=== PATIENT | female | born 1945 | race African-American/Black ===

== ENCOUNTER 2017-01-21 20:00 | Outpatient (CLI) | payer MEDICARE, OTHER | END 2017-01-21 20:01 | disposition home or self-care (01) | LOC: SLEEPLAB 20:00 | PROVIDERS: ATTEND Nurse Practitioner Family | DX: G47.33 Obstructive sleep apnea (adult) (pediatric) (principal); E11.9 Type 2 diabetes mellitus without complications; I10 Essential (primary) hypertension; J44.9 Chronic obstructive pulmonary disease, unspecified | CPT/HCPCS: 95806 ==

== ENCOUNTER 2017-02-14 10:16 | Outpatient (CLI) | payer MEDICARE, OTHER ==
--- NOTE | 2017-02-14 10:59 | BD ---
DEXA BONE DENSITY STUDY: Date: 02/14/17 COMPARISON: None. HISTORY: 71-year-old postmenopausal female for screening for osteoporosis. FINDINGS: Lumbar Spine: BMD (g/cm2) L1 1.115 T-Score: 1.1 L2 1.151 T-Score: 1.1 L3 1.095 T-Score: 0.1 L4 1.074 T-Score: 0.1 L1-L4 1.105 T-Score: 0.5 Femoral Neck: 0.722 T-Score: -1.1 Total Femur: 0.959 T-Score: 0.1 IMPRESSION: Osteopenia. This patient has a 10 year WHO fracture risk for major osteoporotic fracture of 4.4% and a hip fracture of 1.0%. POS: DOUGIE
== END 2017-02-14 10:17 | disposition home or self-care (01) ==
LOC: MAMMO 10:16
PROVIDERS: ATTEND Nurse Practitioner Family
DX: Z78.0 Asymptomatic menopausal state (principal); E28.39 Other primary ovarian failure; M85.88 Other specified disorders of bone density and structure, other site
CPT/HCPCS: 77080

== ENCOUNTER 2017-05-06 11:42 | Outpatient (CLI) | payer MEDICARE, OTHER ==
--- NOTE | 2017-05-06 13:49 | ULT ---
BILATERAL LOWER EXTREMITY DOPPLER VENOUS ULTRASOUND: HISTORY: Bilateral lower extremity edema. TECHNIQUE: Oakes scale, color Doppler, and vascular duplex with spectral analysis was performed of the deep venou s structures of both lower extremities. The common femoral vein, superficial femoral vein, popliteal vein, posterior tibial vein, proximal greater saphenous, and proximal profunda veins were assessed bi laterally. FINDINGS: Normal compression, flow, and augmentation noted in the deep venous structures of both lower extremit ies. IMPRESSION: No evidence of deep vein thrombosis in both lower extremities. POS: DOUGIE
--- NOTE | 2017-05-06 15:04 | ULT ---
BILATERAL LOWER EXTREMITY ARTERIAL DOPPLER ULTRASOUND: Date: 05-06-17 Comparison: None. History: Right knee pain, assess for peripheral arterial disease. Technique: Multiplanar grayscale sonographic imaging of the arterial structures of the bilateral lowe r extremities obtained with color flow and spectral analysis. FINDINGS: Vessel Peak Systolic velocity (cm/sec) Waveform RIGHT LOWER EXTREMITY BATCH UNIT TREATER 161 Triphasic Profunda femoral artery 60 Biphasic SFA proximal 129 Biphasic SFA mid 96 Biphasic SFA distal 89 Biphasic Popliteal artery 62 Biphasic APA 46 Biphasic PIPE STEM SAWYER 51 Biphasic DPA 20 Biphasic LEFT LOWER EXTREMITY BATCH UNIT TREATER 111 Triphasic Profunda femoral artery 99 Biphasic SFA proximal 113 Biphasic SFA mid 76 Biphasic SFA distal 74 Biphasic Popliteal artery 76 Biphasic APA 62 Biphasic PIPE STEM SAWYER 50 Biphasic DPA 26 Biphasic IMPRESSION: Bilateral arterial structures are patent. No discrete hemodynamically significant stenosis is seen on the basis of velocity criteria. POS: DOUGIE
== END 2017-05-06 11:43 | disposition home or self-care (01) ==
LOC: ULT 11:42
PROVIDERS: ATTEND Nurse Practitioner Family
DX: M79.605 Pain in left leg (principal); M79.604 Pain in right leg; I25.10 Atherosclerotic heart disease of native coronary artery without angina pectoris; I12.9 Hypertensive chronic kidney disease with stage 1 through stage 4 chronic kidney disease, or unspecified chronic kidney disease; N18.9 Chronic kidney disease, unspecified
CPT/HCPCS: 93923; 93970

== ENCOUNTER 2017-05-16 20:30 | Outpatient (CLI) | payer MEDICARE, OTHER | END 2017-05-16 20:31 | disposition home or self-care (01) | LOC: SLEEPLAB 20:30 | PROVIDERS: ATTEND Internal Medicine Critical Care Medicine | DX: G47.33 Obstructive sleep apnea (adult) (pediatric) (principal); F41.9 Anxiety disorder, unspecified; J44.9 Chronic obstructive pulmonary disease, unspecified; I25.2 Old myocardial infarction; E11.9 Type 2 diabetes mellitus without complications; R06.3 Periodic breathing | CPT/HCPCS: 95810 ==

== ENCOUNTER 2017-07-09 08:18 | Outpatient (CLI) | payer MEDICARE, OTHER ==
--- NOTE | 2017-07-09 11:49 | ULT ---
ULTRASOUND ABDOMEN: HISTORY: Abdominal pain. COMPARISON: None. FINDINGS: Visualized portion of the aorta has moderate atherosclerotic plaque. The pancreas is unremarkable. IVC is unremarkable. Hepatic echotexture is normal. The liver measures 16.5 cm in length. No intrahepatic or extrahepati c biliary dilatation. The portal vein is patent with antegrade flow. Common bile duct measures 4 mm . No cholelithiasis. Gallbladder wall thickness is normal. The right kidney measures 10 x 4.6 x 4.7 cm without mass, hydronephrosis, or abnormal calcifications. The left kidney measures 10.2 x 5.2 x 5 cm without mass, hydronephrosis, or abnormal calcifications . The spleen measures 8.5 cm in length. Prevoid urinary balder volume is 46 mL and the postvoid is 6.6 mL. IMPRESSION: No acute findings. POS: [facility]
== END 2017-07-09 08:19 | disposition home or self-care (01) ==
LOC: ULT 08:18
PROVIDERS: ATTEND Nurse Practitioner Family
DX: R10.9 Unspecified abdominal pain (principal); I12.9 Hypertensive chronic kidney disease with stage 1 through stage 4 chronic kidney disease, or unspecified chronic kidney disease; N18.9 Chronic kidney disease, unspecified; I25.10 Atherosclerotic heart disease of native coronary artery without angina pectoris; I67.1 Cerebral aneurysm, nonruptured; Z72.0 Tobacco use
CPT/HCPCS: 76700; 76856

== ENCOUNTER 2017-09-06 13:26 | Outpatient (CLI) | payer MEDICARE, OTHER | END 2017-09-06 13:27 | disposition home or self-care (01) | LOC: RAD 13:26 | PROVIDERS: ATTEND Internal Medicine Rheumatology | DX: M54.5 Low back pain (principal); G89.29 Other chronic pain | CPT/HCPCS: 72100 ==

== ENCOUNTER 2018-02-13 12:33 | Outpatient (CLI) | payer MEDICARE, OTHER ==
--- NOTE | 2018-02-13 14:01 | CT ---
LOW DOSE LUNG CANCER CT EVALUATION WITHOUT CONTRAST: Date: 02/13/18 INDICATION: 72-year-old female with history of 60+ years of smoking; quit 10 months ago. COMPARISON: None. FINDINGS: There are areas of tree-in-bud nodularity and ground-glass nodules within the right upper lobe with i nterstitial and ground-glass prominence. This is seen best on image 17 of the axial series. No additi onal suspicious pulmonary nodules are evident. There is scattered emphysema. There are coronary arter y and thoracic aortic calcifications. There are calcified lymph nodes within the mediastinum and righ t hilar region. No pleural effusion is noted. Visualized upper abdomen is unremarkable. There is a ch ronic appearing superior end plate compression deformity of T12. There is scattered degenerative rivera ge. IMPRESSION: 1. Lung-RADS Category 3: Positive: Indeterminate finding requiring low dose CT follow-up imaging. Recommend follow-up low dose CT evaluation in 1-2 months to document resolution of the areas of inte rstitial and ground-glass prominence and scattered tree-in-bud nodularity of the right upper lobe. Th is is suspicious for an infectious or inflammatory bronchiolitis. 2. Category S: Findings of prior granulomatous disease. Coronary artery and thoracic aortic calcifi cations. Emphysema. Superior end plate compression deformity of T12 appears chronic. POS: [facility]
== END 2018-02-13 12:34 | disposition home or self-care (01) ==
LOC: CT 12:33
PROVIDERS: ATTEND Nurse Practitioner Family
DX: Z87.891 Personal history of nicotine dependence (principal)
CPT/HCPCS: G0297

== ENCOUNTER 2018-05-01 12:07 | Outpatient (CLI) | payer MEDICARE, OTHER ==
--- NOTE | 2018-05-01 15:13 | CT ---
LOW DOSE SCREENING CT OF THE CHEST: Date: 05-01-18 Comparison: 02-13-18 History: 58-year-old history of smoking, abnormal chest CT 02-13-18. Technique: Axial CT imaging at 1.25 mm intervals through the chest using low dose screening CT protoc ol without contrast. Coronal reported imaging obtained. FINDINGS: The lack of contrast media limits assessment of the imaged viscera, valve, vascular structures, and f or lymphadenopathy. Limited assessment of the upper abdomen demonstrates atherosclerotic calcification of the imaged abdo km aorta and its branches. No acute upper abdominal findings. No pleural, paracardial, or mediastinal fluid is seen. Limited assessment for adenopathy in the chest demonstrates stable calcified lymph nodes in the right hilum and lateral to the ascending aorta to the right of midline, consistent with granulomatous dise ase, stable. No pneumothorax is evident. Stable fat containing mass is seen along the posterior aspect of the shou lder musculature on the left on image 4. This contains an internal curvilinear septation, as before, and is stable in size when compared to the prior examination measuring up to approximately 6.5 x 2.5 cm. No dominant pulmonary parenchymal mass lesion or nodule is noted within the left upper lobe. Mild inc reased linear density in the inferior lateral lingula noted, likely on the basis of scar and/or volum e loss. A tiny stable 3 mm nodule is noted within the anterior aspect of the left lower lobe on image 33. Mil d increased linear density is again noted within the inferior medial aspect of the left lower lobe, s table as well. Increased linear interstitial density on the basis of scar or volume loss noted within medial right l ower lobe, stable. Right middle lobe appears grossly unremarkable. Scattered nonspecific articular nodular density is seen involving the right upper lobe, most conspicu ous along the inferior aspect of the right upper lobe both anteriorly and posterolaterally. There is a focal area of pleural based density in the right lung apex likely on the basis of scar, best seen o n coronal image 76, stable, measuring 8-9 mm in craniocaudal dimension. Incidental note is made of a small pulmonary arterial venous malformation along the inferior aspect o f the right middle lobe stable as well. There is mild parabronchial cuffing and bronchial wall thicke adry involving the right upper lobe, also unchanged. No acute osseous abnormality identified. IMPRESSION: 1. Lung RADS category 2 - benign appearance or behavior. Persistent reticular nodular opacity with vo lume loss the peribronchial cuffing/bronchial wall thickening and right upper lobe. Given stability o mike time and the calcified nodes in this region, this likely represent the sequellae of a remote/stone planer michael inflammatory or infectious process. 2. Recommend follow up low dose screening chest CT is 12 months. POS: [facility]
== END 2018-05-01 12:08 | disposition home or self-care (01) ==
LOC: CT 12:07
PROVIDERS: ATTEND Nurse Practitioner Family
DX: Z87.891 Personal history of nicotine dependence (principal); J43.0 Unilateral pulmonary emphysema [MacLeod's syndrome]; R91.8 Other nonspecific abnormal finding of lung field; J98.09 Other diseases of bronchus, not elsewhere classified
CPT/HCPCS: G0297

== ENCOUNTER 2018-07-14 08:38 | Outpatient (CLI) | payer MEDICARE, OTHER ==
[~2018-07-14 08:38] MED LIST: Iopamidol 370 76% 100 ML VIAL ONE
--- NOTE | 2018-07-14 11:57 | CT ---
CTA HEAD WITH AND WITHOUT CONTRAST: INDICATIONS: Follow-up aneurysm. COMPARISON: CTA study from 01/03/2017. TECHNIQUE: Multiple axial tomograms obtained through the head without IV enhancement. This was followed by post contrast images performed in the angio phase with multiplanar reconstruction and 3D post processing. FINDINGS: On CT head without contrast, the ventricles have normal size and position. There is no evidence of i ntracranial mass, hemorrhage, or infarct. No acute finding. On CTA head, the intracranial internal carotid arteries are patent. Mild atherosclerotic change is s een in the cavernous portions of both ICAs without stenosis. Aneurysm involving the proximal A2 segment on the left is again noted. This aneurysm measures 5 to 6 mm in all planes and appears unchanged from the prior study. Middle cerebral arteries are patent and symmetric. Basilar artery is patent. Posterior cerebral art eries appear patent and symmetric. 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 POS: DOUGIE
== END 2018-07-14 08:39 | disposition home or self-care (01) ==
LOC: CT 08:38
PROVIDERS: ATTEND Neurological Surgery
DX: I67.1 Cerebral aneurysm, nonruptured (principal)
CPT/HCPCS: 70496; 82565; Q9967

== ENCOUNTER 2018-07-25 13:08 | Outpatient (CLI) | payer MEDICARE, OTHER ==
--- NOTE | 2018-07-25 14:48 | MRI ---
FCervical spine MRI without contrast: 07/25/2018 COMPARISON: None HISTORY: Left-sided shoulder pain and left-sided neck pain TECHNIQUE: Multiplanar multisequence MR imaging of the cervical spine is obtained without contrast. FINDINGS: Sagittal STIR imaging demonstrates no focal area of osseous marrow edema. No anterolisthesis or retrolisthesis noted within the cervical spine. Moderate degenerative change at the atlantoaxial interspace noted. C2-3: Mild facet hypertrophy on the left with no significant central canal or neural foraminal stenos is. C3-4: Intervertebral disc height and signal intensity grossly unremarkable. Mild bilateral facet hype rtrophy noted with no significant central canal or neural foraminal stenosis. C4-5: Disc space narrowing, disc desiccation, and mild disc bulge present with mild effacement of the ventral thecal sac and minimal central canal stenosis. Mild bilateral facet hypertrophy. Right uncov ertebral osteophyte formation present. Moderate right and mild left neural foraminal stenosis. C5-6: Disc desiccation, disc space narrowing, and mild disc bulge with no associated central canal st enosis. Facet and uncovertebral osteophyte formation noted bilaterally, right greater than left. Mode rate right neural foraminal stenosis. No significant left neural foraminal stenosis. C6-7: Intervertebral disc height and signal intensity appears grossly unremarkable. Probable small un covertebral osteophyte formation on the left with mild left neural foraminal stenosis. No significant central canal or right neural foraminal stenosis. C7-T1: No central canal or neural foraminal stenosis. Mild bilateral facet hypertrophy. IMPRESSION: Degenerative change of the cervical spine as detailed above.
== END 2018-07-25 13:09 | disposition home or self-care (01) ==
LOC: TBSIIMAG 13:08
PROVIDERS: ATTEND Family Medicine
DX: M50.11 Cervical disc disorder with radiculopathy, high cervical region (principal); M47.22 Other spondylosis with radiculopathy, cervical region
CPT/HCPCS: 72141

== ENCOUNTER 2018-12-28 13:13 | Observation (INO) | payer MEDICARE, OTHER, MEDICAID ==
--- NOTE | 2018-12-28 14:03 | RAD ---
FRONTAL RADIOGRAPH CHEST: Date: 12/28/18 COMPARISON: None. HISTORY: Weakness, high blood pressure. FINDINGS: There is no pneumothorax or pleural fluid, and no focal consolidation or alveolar edema. Heart and me diastinal contours unremarkable. There is atherosclerotic calcification of the aortic arch. IMPRESSION: No focal consolidation or alveolar edema. No acute findings. POS: [facility]
[2018-12-28 14:11] LABS: #Eosinphils 0.3 thou/uL (0.0-0.7); #Lymphocytes 1.2 thou/uL (1.20-3.40); #Monocytes 0.5 thou/uL (0.11-0.59); %Basophils 0.2 % (0.0-1.0); %Eosinophils 2.3 % (0.0-10.0); %Lymphocytes 10.6 % (21.0-51.0); %Monocytes 4.6 % (0.0-10.0); %Neutrophils 82.2 % (42.0-75.0); Hemoglobin 12.3 g/dL (12.0-16.0); Mean Corpuscular HGB CONC 35.5 g/dL (32.0-36.0); Mean Corpuscular Hemoglobin 36.1 pg (27.0-31.0); RBC Distribution Width 12.1 % (11.5-14.5); White Blood Cell (WBC) Count 10.9 thou/uL (4.8-10.8)
[2018-12-28 14:23] LABS: ALT (SGPT) 11 U/L (8-55); AST (SGOT) 13 U/L (5-34); Alkaline Phosphatase 59 U/L (40-150); Anion Gap 13 mmol/L (10-20); BUN (Urea Nitrogen) 21 mg/dL (9.8-20.1); Bilirubin, Total 0.8 mg/dL (0.2-1.2); CK (CPK) 105 U/L (29-168); Calc. Creatinine Clearance 0 mL/min (70-130); Calcium 9.2 mg/dL (7.8-10.44); Carbon Dioxide 23 mmol/L (23-31); Chloride 106 mmol/L (98-107); Estimated GFR-MDRD 56; Globulin 2.8 g/dL (2.4-3.5); Glucose 119 mg/dL (83-110); Magnesium 1.9 mg/dL (1.6-2.6); Potassium 4.2 mmol/L (3.5-5.1); Protein, Total 6.8 g/dL (6.0-8.3); Sodium 138 mmol/L (136-145)
[2018-12-28 14:31] LABS: MDiff Complete? YES; Macrocytosis SLIGHT = 6-15 cells (100X) (0-5/hpf); Mean Platelet Volume 8.2 fL (7.4-10.4); Ovalocytes SLIGHT = 2-5 cells (100X) (0-1/hpf); Platelet Count 118 thou/uL (130-400); Platelet Morphology Comment Appears Decreased; Polychromasia SLIGHT = 2-3 cells (100X) (0-2/hpf)
[2018-12-28 15:01] LABS: Bacteria/HPF None Seen HPF (None Seen); Bilirubin Negative (Negative); Blood, Urine Negative (Negative); Clarity Clear (Clear); Glucose, Urine (Dipstick) Normal (Negative); Leukocyte 75 Leu/uL (Negative); Nitrite Negative (Negative); Protein, Urine (Dipstick) 70 mg/dL (Neg-Trace); RBC/HPF 0-3 HPF (0-3); Squamous Epithelial 0-3 HPF (0-3); Urobilinogen 3 mg/dL (Less than 2)
[2018-12-28] MEDS ORDERED: Acetaminophen 500 MG TAB ONE (15:37)
[2018-12-28 17:46] VITALS: BMI 29.6
[2018-12-28 18:36] LABS: Troponin I Less than 0.010 ng/mL (< 0.028)
[2018-12-28] MEDS ORDERED: Nitroglycerin 0.4 MG TAB (25 Tab Bottle) SL PRN (18:50)
[2018-12-28] MEDS ORDERED: hydrALAZINE 20 MG/ML VIAL SLOW IVP PRN (18:56)
[2018-12-28 20:39] LABS: Troponin I Less than 0.010 ng/mL (< 0.028)
[2018-12-28] MEDS: ALPRAZolam 0.5 MG TAB PO SCH (22:45)
[2018-12-28] MEDS: Rosuvastatin 20 MG TAB PO SCH (22:45)
[2018-12-28] MEDS: Carvedilol 25 MG TAB PO SCH (22:46)
[2018-12-28] MEDS ORDERED: Labetalol HCl 100 MG/20 ML VIAL SLOW IVP SCH (23:15)
[2018-12-28] MEDS: ceFAZolin 1 GM/D5W 1 GM in Premix Bag 1 BAG IVPB SCH (23:35)
[2018-12-29] MEDS: Acetaminophen 325 MG TAB PO PRN ×2 (00:20→22:35)
--- NOTE | 2018-12-29 03:09 | HP ---
REASON FOR ADMISSION: Episode of near syncope. HISTORY OF PRESENT ILLNESS: This is a 73-year-old female patient, who yesterday was shopping and suddenly felt lightheaded, dizzy, and weak. She was able to drive, and when she went home, she rested, felt better, and took a shower. This morning, she woke up. She kept feeling weak all day long. She did have episodes of chest pain, but this is nothing new to her. She usually takes nitroglycerin whenever she had episodes of chest pain. She has been having nausea, vomiting, and diarrhea for the past 2 weeks, but also nothing new to her. She said that all the symptoms mentioned above were chronic and off and on for many years. She claims that she was admitted to the hospital, and she did undergo a workup as an outpatient as well for the symptoms, but no definite diagnosis was ever made. The patient was diagnosed with a UTI 3 weeks ago, and she does follow with a urologist, who recently prescribed her nitrofurantoin, although he told her that she does not have a UTI. She denies fevers, denies chills. I extensively reviewed her records and her last admission was 5 years ago with similar presentation. During that stay, she did undergo a cardiac cath. The etiology of her profound weakness was never found, and she was advised to stop smoking, which she did a year and a half ago. PAST MEDICAL HISTORY: 1. Coronary artery disease, post stents. 2. High blood pressure. 3. Hypothyroidism. 4. ?Diabetes. 5. High cholesterol. SOCIAL HISTORY: She quit smoking a year and a half ago. PAST SURGICAL HISTORY: Hysterectomy and . ALLERGIES: TO ELAVIL AND IODINE WHICH GIVES HER RASH AND ITCHING. REVIEW OF SYSTEMS: All systems reviewed; except the above-mentioned, found to be negative. FAMILY HISTORY: Negative for heart disease. PHYSICAL EXAMINATION: GENERAL: Awake, alert, oriented. Does not appear in distress. VITAL SIGNS: Her blood pressure is 140/71. In the ER, she went down to a systolic of 80 when she stood up. Heart rate 66, temperature 98.3, saturating 100% on room air. HEENT: Head is nontraumatic, normocephalic. Pupils are equal and reactive. Extraocular movements are intact. Nonicteric sclerae. Well-injected conjunctivae. Oral mucosa normal. Nasal mucosa normal. NECK: Supple. No adenopathy, no murmur. Thyroid is not palpable. Trachea is midline. No supraclavicular lymphadenopathy. HEART: S1 and S2, regular. Systolic murmur is heard. No displacement of PMI. LUNGS: Clear to auscultation bilaterally. No wheezes, no rhonchi, no crackles. ABDOMEN: Bowel sounds are positive. Nontender abdomen. No hepatosplenomegaly. EXTREMITIES: No lower extremity edema. No cyanosis. NEUROLOGIC: Cranial nerves 2 through 12 within normal limits. Normal motor function. Normal sensory function and reflexes. LABORATORY DATA: Blood work shows WBC of 10.9, hemoglobin of 12.3, platelets of 118. INR of 0.9. Sodium of 138, potassium 4.2, BUN 21, creatinine 1.4. Her usual BUN is 19. EKG per my read shows normal sinus rhythm. No previous EKG to compare with. No ST segment or Q-wave changes seen. Chest x-ray shows no abnormality. ASSESSMENT AND PLAN: This is a 73-year-old female patient, who is presenting with an episode of near syncope and generalized weakness. She had something similar in 2015, no specific etiology was found. What is positive at this time is that she has a urine analysis that is positive for an infection. She was on nitrofurantoin. We will start her on IV antibiotics while she is here awaiting sensitivity, and I will hold off on giving her, her ARB and her calcium channel tommy. She did receive IV fluids in the ER. She might be slightly dehydrated. 1. Cardiac: The patient will be on telemetry. We will cycle her cardiac enzymes. We will do an orthostatic reading in the morning. We will hold off on some of her blood pressure medications. We will maintain her on her vasodilator because she does have chronic chest pain, so we will continue with Imdur and Ranexa. She does follow with her metal window screen assembler on a regular basis. He does do echocardiograms, as per her. I did confirm with him and he did not suggest doing another one. So, we will monitor her on telemetry for now. 2. Neuro: The patient did have a near syncopal episode and she was orthostatic. Her low blood pressure could be what is causing her symptomatology. We will do a carotid Doppler to further investigate that. 3. In regards of her hypothyroidism, continue with levothyroxine. 4. For deep vein thrombosis prophylaxis, she should be on Lovenox subcutaneously and sequential compression devices. 5. Renal system: Electrolytes, the patient does have slight evidence of dehydration. She did receive IV fluids in the ER. We will recheck her labs in the morning. I did discuss with her, her code status. She wishes to be a full code. Job ID: [id number]
[2018-12-29 05:53] LABS: #Eosinphils 0.3 thou/uL (0.0-0.7); #Lymphocytes 0.8 thou/uL (1.20-3.40); #Monocytes 0.5 thou/uL (0.11-0.59); #Neutrophils 4.4 thou/uL (1.40-6.50); %Basophils 0.2 % (0.0-1.0); %Eosinophils 4.2 % (0.0-10.0); %Lymphocytes 14.1 % (21.0-51.0); %Monocytes 8.1 % (0.0-10.0); %Neutrophils 73.4 % (42.0-75.0); Hemoglobin 11.4 g/dL (12.0-16.0); Mean Corpuscular HGB CONC 34.7 g/dL (32.0-36.0); Mean Corpuscular Hemoglobin 35.8 pg (27.0-31.0); Mean Platelet Volume 8.4 fL (7.4-10.4); Platelet Count 106 thou/uL (130-400); RBC Distribution Width 12.3 % (11.5-14.5); Red Blood Cell (RBC) Count 3.18 mill/uL (4.20-5.40); White Blood Cell (WBC) Count 5.9 thou/uL (4.8-10.8)
[2018-12-29] MEDS: ceFAZolin 1 GM/D5W 1 GM in Premix Bag 1 BAG IVPB SCH ×3 (06:03→23:40)
[2018-12-29] MEDS: Levothyroxine Sodium 50 MCG TAB PO SCH (06:04)
[2018-12-29 06:12] LABS: Anion Gap 10 mmol/L (10-20); BUN (Urea Nitrogen) 17 mg/dL (9.8-20.1); Calc. Creatinine Clearance 72 mL/min (70-130); Calcium 8.6 mg/dL (7.8-10.44); Carbon Dioxide 24 mmol/L (23-31); Chloride 108 mmol/L (98-107); Estimated GFR-MDRD 75; Glucose 110 mg/dL (83-110); Sodium 138 mmol/L (136-145)
[2018-12-29] MEDS ORDERED: Icosapent Ethyl [Vascepa] 1 GM PO SCH (08:00)
--- NOTE | 2018-12-29 09:19 | PDOC.HOSPP ---
- Subjective Encounter Date: 12/29/18 Subjective: feels much better today, she was able to ambulate and did not feel lightheaded - Objective Vital Signs & Weight: Vital Signs (12 hours) Temp Pulse Resp BP BP Pulse Ox 12/29/18 08:00 98.4 F 91 18 144/67 H 94 L 12/29/18 03:49 98.6 F 83 18 128/60 93 L 12/28/18 23:45 98.5 F 107 H 18 157/71 H 96 12/28/18 23:40 101 H 157/71 H Weight Weight 183 lb 6.793 oz I&O: 12/28/18 12/29/18 12/30/18 06:59 06:59 06:59 Intake Total 427 Balance 427 Result Diagrams: 12/29/18 05:14 12/29/18 05:14 Hospitalist ROS - Medication Medications: Active Medications Generic Name Dose Route Start Last Admin Trade Name Freq PRN Reason Stop Dose Admin Acetaminophen 650 mg 12/28/18 23:12 12/29/18 00:20 Tylenol PO 650 mg Q6H PRN Administration Headache, Aches or Pain Alprazolam 0.5 mg 12/28/18 21:00 12/28/18 22:45 Xanax PO 0.5 mg HS RIZWANA Administration Carvedilol 25 mg 12/28/18 21:00 12/28/18 22:46 Coreg PO 25 mg BID RIZWANA Administration Cefazolin Sodium/Dextrose 1 gm 50 mls @ 100 mls/hr 12/28/18 22:00 12/29/18 06 :03 / Device IVPB 50 mls Q8HR RIZWANA Administration Levothyroxine Sodium 50 mcg 12/29/18 06:00 12/29/18 06:04 Synthroid PO 50 mcg 0600 RIZWANA Administration Ranolazine 1,000 mg 12/28/18 21:00 12/28/18 22:44 Ranexa PO 1,000 mg BID RIZWANA Administration Rosuvastatin Calcium 20 mg 12/28/18 21:00 12/28/18 22:45 Crestor PO 20 mg HS RIZWANA Administration - Exam General Appearance: NAD, awake alert Eye: PERRL, anicteric sclera ENT: normocephalic atraumatic, no oropharyngeal lesions, moist mucosa Neck: supple, symmetric, no JVD, no thyromegaly, no lymphadenopathy, no carotid bruit Heart: RRR, no murmur, no gallops, no rubs, normal peripheral pulses Respiratory: CTAB, no wheezes, no rales, no ronchi, normal chest expansion, no tachypnea, normal percussion Gastrointestinal: soft, non-tender, non-distended, normal bowel sounds, no palpable masses, no hepatomegaly, no splenomegaly, no bruit Extremities: no cyanosis, no clubbing, no edema Skin: normal turgor, no lesions, no rashes Neurological: CN's grossly intact, normal sensation to touch, no weakness, no focal deficits, no new deficit Musculoskeletal: normal tone, normal strength, no muscle wasting Hosp A/P (1) Near syncope Status: Acute (2) UTI (urinary tract infection) Status: Acute (3) CAD (coronary artery disease) Code(s): I25.10 - ATHSCL HEART DISEASE OF [place] CORONARY ARTERY W/O ANG PCTRS Status: Chronic - Plan --her kidney function improved after hydration - She is receiving ATB for her UTI I will restart her BP meds, I also awaiting for orthostatic readings. she will be getting an echo doppler today
[2018-12-29] MEDS: Folic Acid 1 MG TAB PO SCH (09:24)
[2018-12-29] MEDS: Calcium Carbonate + Vit D 1 TAB PO SCH (09:24)
[2018-12-29] MEDS: Carvedilol 25 MG TAB PO SCH ×2 (09:24→22:29)
[2018-12-29] MEDS: Ferrous Sulfate 325 MG TAB PO SCH (09:24)
[2018-12-29] MEDS: Aspirin 81 mg Enteric Coated Tablet PO SCH (09:24)
[2018-12-29] MEDS: DULoxetine 30 MG CAP PO SCH (09:24)
[2018-12-29] MEDS: Enoxaparin Sodium 30 MG/0.3 ML SYRINGE SC SCH (09:25)
[2018-12-29] MEDS: Isosorbide Mononitrate (ER) 30 MG TAB PO SCH (09:25)
--- NOTE | 2018-12-29 09:29 | ULT ---
BILATERAL CAROTID DUPLEX ULTRASOUND INCLUDING COLOR AND SPECTRAL DOPPLER IMAGING: DATE: 12/29/18 HISTORY: Syncope. COMPARISON: 03/22/14. FINDINGS: Visible plaque in both proximal ICAs, worse on the right side. PSV Right ICA: 165 cm/sec EDV: 55 cm/sec ICA/CCA Ratio: 1.5 PSV Left ICA: 110 cm/sec EDV: 32 cm/sec ICA/CCA Ratio: 1.0 Vertebral flow antegrade. IMPRESSION: 1. Moderate (50-69%) stenosis of the right ICA. This is new when compared to the prior study. 2. Evidence for bilateral carotid artery atherosclerotic vascular disease. Depending upon clinical concern, consider nonemergent follow-up CT angiogram neck. POS: DOUGIE
[2018-12-29] MEDS ORDERED: Amlodipine 5 MG TAB PO SCH (21:00)
[2018-12-29] MEDS: Rosuvastatin 20 MG TAB PO SCH (22:29)
[2018-12-29] MEDS: ALPRAZolam 0.5 MG TAB PO SCH (22:30)
[2018-12-30] MEDS: ceFAZolin 1 GM/D5W 1 GM in Premix Bag 1 BAG IVPB SCH ×2 (05:14→13:40)
[2018-12-30] MEDS: Levothyroxine Sodium 50 MCG TAB PO SCH (05:15)
[2018-12-30 06:31] LABS: Anion Gap 11 mmol/L (10-20); BUN (Urea Nitrogen) 16 mg/dL (9.8-20.1); Calc. Creatinine Clearance 68 mL/min (70-130); Calcium 8.6 mg/dL (7.8-10.44); Carbon Dioxide 24 mmol/L (23-31); Chloride 107 mmol/L (98-107); Estimated GFR-MDRD 70; Glucose 119 mg/dL (83-110); Sodium 138 mmol/L (136-145)
[2018-12-30 06:33] LABS: #Eosinphils 0.3 thou/uL (0.0-0.7); #Monocytes 0.5 thou/uL (0.11-0.59); #Neutrophils 2.5 thou/uL (1.40-6.50); %Basophils 0.7 % (0.0-1.0); %Eosinophils 6.5 % (0.0-10.0); %Lymphocytes 36.5 % (21.0-51.0); %Monocytes 9.4 % (0.0-10.0); %Neutrophils 46.9 % (42.0-75.0); Mean Corpuscular HGB CONC 34.6 g/dL (32.0-36.0); Mean Corpuscular Hemoglobin 35.6 pg (27.0-31.0); Mean Platelet Volume 8.1 fL (7.4-10.4); Platelet Count 112 thou/uL (130-400); Red Blood Cell (RBC) Count 3.37 mill/uL (4.20-5.40); White Blood Cell (WBC) Count 5.3 thou/uL (4.8-10.8)
[2018-12-30 06:37] LABS: Troponin I 0.011 ng/mL (< 0.028)
[2018-12-30] MEDS: DULoxetine 30 MG CAP PO SCH (08:53)
[2018-12-30] MEDS: Isosorbide Mononitrate (ER) 30 MG TAB PO SCH (08:53)
[2018-12-30] MEDS: Folic Acid 1 MG TAB PO SCH (08:53)
[2018-12-30] MEDS: Ferrous Sulfate 325 MG TAB PO SCH (08:53)
[2018-12-30] MEDS: Calcium Carbonate + Vit D 1 TAB PO SCH (08:55)
[2018-12-30] MEDS: Carvedilol 25 MG TAB PO SCH (08:55)
[2018-12-30] MEDS: Aspirin 81 mg Enteric Coated Tablet PO SCH (08:55)
[2018-12-30] MEDS: Enoxaparin Sodium 30 MG/0.3 ML SYRINGE SC SCH (08:55)
[2018-12-30] MEDS ORDERED: Losartan 25 MG TAB PO SCH (09:00)
[2018-12-30] MEDS: Acetaminophen 325 MG TAB PO PRN (13:46)
[2018-12-30 16:10] VITALS: BP 134/63; TEMP 97.9
--- NOTE | 2018-12-31 06:09 | DIS ---
DATE OF ADMISSION: 12/28/2018 DATE OF DISCHARGE: 12/30/2018 HISTORY OF PRESENT ILLNESS: This is a 73-year-old female patient, who presented with episode of near-syncope and generalized weakness. She was admitted on 12/28/2018. Her urinalysis was positive for an infection, for which she was started before admission on nitrofurantoin. UA during her stay here was positive as well, so she was started on antibiotics. In the ER, she was found to be orthostatic. Her blood pressure medications were stopped. She did receive IV fluids at the ER. She was slightly dehydrated. She was admitted to Telemetry, and her cardiac enzymes were cycled, and they were found to be negative. Since she follows with Dr. Davis on a regular basis, it was thought that she does not need an echocardiogram, but we did a carotid doppler that showed moderate disease in the right carotid artery. I did confer with Vascular Surgery. My recommendation is to follow with carotid doppler on a yearly basis. I did notify her primary care physician about the abnormal result. Her blood pressure medications were reinstated, and the patient had an episode of lightheadedness when she was in the bathroom. We did check orthostatic readings on her, and the blood pressure is dropping, but the patient did not feel any symptoms when she stood up and the blood pressure dropped, and it has not been dropping to the extent that it dropped at the ER. I will discharge the patient today. I will hold her Norvasc to minimize any fluctuation in her blood pressure. I advised her to follow up with her primary care physician in a week for blood pressure medication adjustment. The patient verbalized understanding. PHYSICAL EXAMINATION: GENERAL: She is awake, alert, and oriented. Does not appear in distress. VITAL SIGNS: Her blood pressure is 140/71, sitting 134/73, standing 105/61, but asymptomatic during her measurements. Her temperature is 98.2, and her heart rate is 75. NECK: Her neck is supple. No adenopathy, no mass. Thyroid is not palpable. Trachea is midline. No supraclavicular adenopathy. HEART: S1 and S2 regular. No murmur, no gallops, no frictional rubs. No displacement of PMI. LUNGS: Clear to auscultation bilaterally. No wheezes, no rhonchi, no crackles. ABDOMEN: Bowel sounds are positive. Nontender abdomen. No hepatosplenomegaly. EXTREMITIES: No lower extremity edema. No cyanosis. NEUROLOGIC: Cranial nerves 2 through 12 within normal limits. Normal motor function. Normal sensory function and reflexes. LABORATORY DATA: Blood work shows a WBC of 5.3, hemoglobin of 12, platelets of 112. Sodium of 138, potassium 4, bicarb 24, creatinine 0.94. ASSESSMENT AND PLAN: This is a 73-year-old female patient who presented with multiple complaints including being dizzy and lightheaded. She was found to be orthostatic. She improved with hydration. She was found to have infection on urinalysis. We will send her on Ceftin for a course of 3 days to finish a course of 5 days on antibiotics. Also, we will stop her Norvasc to minimize fluctuation of her blood pressure. She is to follow with her primary care physician in a week for further blood pressure management, also with her blood bank technologist. She is to have a yearly carotid Doppler to follow on the moderate obstruction found on the right internal carotid artery. More than half an hour was spent to discharge this patient. Job ID: [id number]
[2018-12-31] MEDS ORDERED: Enoxaparin Sodium 40 MG/0.4 ML SYRINGE SC SCH (09:00)
== END 2018-12-30 16:30 | disposition home or self-care (01) ==
LOC: ERS 13:13 → 2SW 15:25
PROVIDERS: ADMIT Internal Medicine; ATTEND Internal Medicine
DX: R55 Syncope and collapse (principal); R53.1 Weakness; R07.9 Chest pain, unspecified; N39.0 Urinary tract infection, site not specified; I10 Essential (primary) hypertension; E03.9 Hypothyroidism, unspecified; E78.5 Hyperlipidemia, unspecified; I65.23 Occlusion and stenosis of bilateral carotid arteries; Z87.891 Personal history of nicotine dependence; Z88.8 Allergy status to other drugs, medicaments and biological substances; Z91.041 Radiographic dye allergy status; Z95.5 Presence of coronary angioplasty implant and graft; Z79.899 Other long term (current) drug therapy; Z79.82 Long term (current) use of aspirin
CPT/HCPCS: 71045; 80048 ×2; 80053; 82550; 83735; 83880; 84484 ×3; 85025 ×3; 93005; 93880; 94640 ×2; 96361; 96365; 96366 ×2; 96372 ×2; 99285; G0378 ×4; 36415; 81003; 81015; 96360; J0360; J0690; J1650; J7620

== ENCOUNTER 2019-01-16 08:46 | Outpatient (CLI) | payer MEDICARE, OTHER, MEDICAID ==
--- NOTE | 2019-01-16 12:29 | MRI ---
MR ANGIOGRAPHY OF THE NECK WITH AND WITHOUT CONTRAST: Multiplanar reconstruction obtained with 3D post processing. Time of flight and post contrast images obtained. INDICATION: Carotid stenosis. Carotid Doppler study 12/29/2018 showed evidence of right ICA stenosis. FINDINGS: There is luminal narrowing at the origin of the right ICA consistent with hemodynamically significant stenosis. Both common carotid arteries appear unremarkable. The left bulb and left ICA appear unremarkable with no evidence of significant stenosis. There is a dominant left vertebral. Both vertebrals appear patent. IMPRESSION: Luminous narrowing at the origin of the right internal carotid artery suggests hemodynamically signif icant stenosis and corresponds to the ultrasound velocity recordings on 12/29/2018. Suggest correlatio n with catheter angiogram for definitive characterization. POS: DOUGIE
== END 2019-01-16 08:47 | disposition home or self-care (01) ==
LOC: BICMRI 08:46 → SCSMRI 08:47
PROVIDERS: ATTEND Internal Medicine Cardiovascular Disease
DX: I65.23 Occlusion and stenosis of bilateral carotid arteries (principal)
CPT/HCPCS: 70549; 82565

== ENCOUNTER 2019-07-08 09:57 | Outpatient (CLI) | payer MEDICARE, OTHER, MEDICAID ==
--- NOTE | 2019-07-08 10:34 | CT ---
CT PULMONARY LUNG SCAN: History: Lung screening. Current smoker. Personal history of nicotine dependence. Comparison: Chest radiograph December 2018. CT chest April 2018. Findings: Lung screening specific (lung-RADS): No suspicious pulmonary nodule. Potentially significant incidentals (lung RADS category S): Negative. Pulmonary incidentals: There is bronchiectasis and scar in the right upper lobe. There is a vessel al boris the right minor fissure which is similar in size relative to the comparison examination suggesting a component of arterial venous malformation/fistula. Other incidentals: Multiple calcified right hilar and paratracheal lymph nodes. Moderate vascular anju cifications. Limited evaluation of the upper abdomen is unremarkable. The sternum and manubrium are intact. Old compression deformity of T12. Impression: 1. Lung RADS category 2: Benign appearance or behavior. Recommend follow-up chest CT screening in 12 months. 2. Lung RADS category S: Negative. No new or unknown potentially significant incidental findings requ iring urgent additional evaluation. Transcribed Date/Time: 07/08/2019 10:44 AM
== END 2019-07-08 09:58 | disposition home or self-care (01) ==
LOC: BICCT 09:57
PROVIDERS: ATTEND Nurse Practitioner Family
DX: Z12.2 Encounter for screening for malignant neoplasm of respiratory organs (principal); F17.210 Nicotine dependence, cigarettes, uncomplicated
CPT/HCPCS: G0297

== ENCOUNTER 2020-02-05 10:47 | Emergency (ER) | payer MEDICARE, OTHER, MEDICAID ==
[2020-02-05 11:21] LABS: #Eosinphils 0.1 thou/uL (0.0-0.7); #Lymphocytes 1.8 thou/uL (1.20-3.40); #Monocytes 0.5 thou/uL (0.11-0.59); %Basophils 0.4 % (0.0-1.0); %Eosinophils 1.7 % (0.0-10.0); %Lymphocytes 32.8 % (21.0-51.0); %Monocytes 9.5 % (0.0-10.0); %Neutrophils 55.5 % (42.0-75.0); Hemoglobin 12.6 g/dL (12.0-16.0); Mean Corpuscular HGB CONC 35.1 g/dL (32.0-36.0); Mean Corpuscular Hemoglobin 36.3 pg (27.0-31.0); Mean Platelet Volume 8.8 fL (7.4-10.4); Platelet Count 122 thou/uL (130-400); RBC Distribution Width 11.8 % (11.5-14.5); Red Blood Cell (RBC) Count 3.46 mill/uL (4.20-5.40); White Blood Cell (WBC) Count 5.4 thou/uL (4.8-10.8)
--- NOTE | 2020-02-05 11:25 | RAD ---
PORTABLE CHEST: Date: 02/05/2020 COMPARISON: 12/28/2018 study. HISTORY: Cough and weakness. FINDINGS: Heart size within normal limits. Atherosclerotic changes of the aorta. Lungs are clear of any infiltr ative process. IMPRESSION: No active intrathoracic disease. POS: ERIKA
[2020-02-05 11:46] LABS: ALT (SGPT) 7 U/L (8-55); AST (SGOT) 13 U/L (5-34); Albumin 3.8 g/dL (3.4-4.8); Alkaline Phosphatase 57 U/L (40-110); Anion Gap 10 mmol/L (10-20); BUN (Urea Nitrogen) 14 mg/dL (9.8-20.1); Bilirubin, Total 0.5 mg/dL (0.2-1.2); Calc. Creatinine Clearance 0 mL/min (70-130); Calcium 8.3 mg/dL (7.8-10.44); Carbon Dioxide 25 mmol/L (23-31); Chloride 108 mmol/L (98-107); Estimated GFR-MDRD 62; Globulin 2.3 g/dL (2.4-3.5); Glucose 130 mg/dL (83-110); Potassium 3.9 mmol/L (3.5-5.1); Protein, Total 6.1 g/dL (6.0-8.3); Sodium 139 mmol/L (136-145)
[2020-02-05 12:36] LABS: Bacteria/HPF None Seen HPF (None Seen); Bilirubin Negative (Negative); Blood, Urine Negative (Negative); Clarity Clear (Clear); Glucose, Urine (Dipstick) Normal (Negative); Ketone, Urine Negative (Negative); Leukocyte 25 Leu/uL (Negative); Nitrite Negative (Negative); Protein, Urine (Dipstick) 20 mg/dL (Neg-Trace); RBC/HPF 0-3 HPF (0-3); Specific Gravity, Urine 1.019 (1.002-1.036); Squamous Epithelial 0-3 HPF (0-3); Urobilinogen Normal mg/dL (Less than 2); pH, Urine 5.5 (5.0-9.0)
[2020-02-06 15:24] LABS: SARS-CoV-2 MS2 Positive; SARS-CoV-2 N Gene Negative; SARS-CoV-2 S Gene Negative; SARS-CoV-2 by NAA Not Detected (NotDetected); SARS-CoV-2 orf1ab Negative
== END 2020-02-05 13:45 | disposition home or self-care (01) ==
LOC: ERS 10:47
DX: J06.9 Acute upper respiratory infection, unspecified (principal); N39.0 Urinary tract infection, site not specified; Z20.828 Contact with and (suspected) exposure to other viral communicable diseases; I10 Essential (primary) hypertension; E03.9 Hypothyroidism, unspecified; Z87.891 Personal history of nicotine dependence; Z79.82 Long term (current) use of aspirin; Z79.899 Other long term (current) drug therapy
CPT/HCPCS: 71045; 80053; 83880; 84484; 85025; 93005; 99285; U0003; 36415; 81003; 81015; 87635

== ENCOUNTER 2020-05-17 07:48 | Outpatient (CLI) | payer MEDICARE, OTHER, MEDICAID ==
--- NOTE | 2020-05-17 09:49 | CT ---
CT angiogram head: 05/17/2020 COMPARISON: 07/14/2018 HISTORY: Brain aneurysm, reevaluate size TECHNIQUE: Axial CT imaging at 5 mm intervals obtained from the vertex through the skull base without contrast. Then, axial CT imaging obtained at 1.25 mm intervals from the vertex through the skull base with IV contrast using CT angiogram protocol with coronal and sagittal 3-D reformatted imaging FINDINGS: The noncontrast enhanced head CT demonstrates no evidence for intracranial hemorrhage, midl ine shift, mass effect, or ventricular enlargement. The imaged paranasal sinuses and the mastoid air cells appear well-aerated. There is no displaced calvarial fracture. The postcontrast imaging demonstrates a saccular aneurysm directed anteriorly at the level of the ant erior communicating artery measuring approximately 5 x 5 x 6 mm, unchanged when compared to the 2018 CT angiogram. The distal right vertebral artery is hypoplastic and appears to terminate in the PICA. The visualized left vertebral artery is dominant and otherwise unremarkable. The basilar artery and its branches appear patent. There is atherosclerotic calcification involving the cavernous carotid artery bilaterally. The A1 segment and the distal ONEL branches are patent bilaterally. The ICA bifurcation, the M1 segmen t, the MCA bifurcation, and the distal MCA branches appear unremarkable bilaterally. 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
[2020-05-17] MEDS ORDERED: Iopamidol 370 76% 100 ML VIAL ONE (13:55)
== END 2020-05-17 07:49 | disposition home or self-care (01) ==
LOC: CT 07:48
PROVIDERS: ATTEND Neurological Surgery
DX: I67.1 Cerebral aneurysm, nonruptured (principal)
CPT/HCPCS: 70496; 82565; Q9967

== ENCOUNTER 2020-06-07 09:50 | Outpatient (CLI) | payer MEDICARE, OTHER, MEDICAID ==
--- NOTE | 2020-06-07 11:41 | RAD ---
TWO VIEW CHEST: INDICATION: Dyspnea. COMPARISON: 02/05/2020. FINDINGS: Interstitial markings are more prominent in the right mid and lower lung. No confluent consolidation or infiltrate. The left lung appears clear. IMPRESSION: Increased interstitial markings in the right lung could represent COVID pneumonia. POS: AGW
== END 2020-06-07 09:51 | disposition home or self-care (01) ==
LOC: BICRAD 09:50
PROVIDERS: ATTEND Internal Medicine Critical Care Medicine
DX: R06.00 Dyspnea, unspecified (principal); R91.8 Other nonspecific abnormal finding of lung field
CPT/HCPCS: 71046

== ENCOUNTER 2020-07-12 13:13 | Outpatient (CLI) | payer MEDICARE, OTHER, MEDICAID | END 2020-07-12 13:14 | disposition home or self-care (01) | LOC: BICCT 13:13 | PROVIDERS: ATTEND Nurse Practitioner Family | DX: Z12.2 Encounter for screening for malignant neoplasm of respiratory organs (principal); Z87.891 Personal history of nicotine dependence; J44.9 Chronic obstructive pulmonary disease, unspecified | CPT/HCPCS: 71271 ==

== ENCOUNTER 2020-09-24 12:29 | Emergency (ER) | payer MEDICARE, OTHER, MEDICAID ==
[2020-09-24] MEDS ORDERED: Dexamethasone 10 MG/ML VIAL ONE (13:24)
[2020-09-24 13:29] LABS: #Basophils 0.1 thou/uL (0.0-0.2); #Eosinphils 0.1 thou/uL (0.0-0.7); #Lymphocytes 1.9 thou/uL (1.20-3.40); #Monocytes 0.6 thou/uL (0.11-0.59); #Neutrophils 4.6 thou/uL (1.40-6.50); %Basophils 1.5 % (0.0-1.0); %Eosinophils 1.1 % (0.0-10.0); %Lymphocytes 26.1 % (21.0-51.0); %Monocytes 7.8 % (0.0-10.0); %Neutrophils 63.4 % (42.0-75.0); Hemoglobin 14.1 g/dL (12.0-16.0); Mean Corpuscular HGB CONC 34.4 g/dL (32.0-36.0); Mean Platelet Volume 8.5 fL (7.4-10.4); Platelet Count 140 thou/uL (130-400); RBC Distribution Width 11.8 % (11.5-14.5); Red Blood Cell (RBC) Count 3.92 mill/uL (4.20-5.40); White Blood Cell (WBC) Count 7.2 thou/uL (4.8-10.8)
[2020-09-24 13:49] LABS: ALT (SGPT) 16 U/L (8-55); AST (SGOT) 20 U/L (5-34); Albumin 4.1 g/dL (3.4-4.8); Alkaline Phosphatase 75 U/L (40-110); Anion Gap 13 mmol/L (10-20); BUN (Urea Nitrogen) 18 mg/dL (9.8-20.1); Bilirubin, Total 0.6 mg/dL (0.2-1.2); CK (CPK) 111 U/L (29-168); Calc. Creatinine Clearance 0 mL/min (70-130); Calcium 9.3 mg/dL (7.8-10.44); Carbon Dioxide 24 mmol/L (23-31); Chloride 106 mmol/L (98-107); Globulin 3.3 g/dL (2.4-3.5); Glucose 107 mg/dL (83-110); Lipase 51 U/L (8-78); Potassium 4.4 mmol/L (3.5-5.1); Protein, Total 7.4 g/dL (5.8-8.1); Sodium 139 mmol/L (136-145)
== END 2020-09-24 14:43 | disposition home or self-care (01) ==
LOC: ERS 12:29
DX: R05 Cough (principal); R53.1 Weakness; E03.9 Hypothyroidism, unspecified; I10 Essential (primary) hypertension; Z87.891 Personal history of nicotine dependence
CPT/HCPCS: 71045; 80053; 82550; 83690; 84484; 85025; 85379; 93005; 94640; 96374; J1100; J7620

== ENCOUNTER 2020-09-27 13:05 | Emergency (ER) | payer MEDICARE, OTHER, MEDICAID ==
[~2020-09-27 13:05] MED LIST changes: -Iopamidol 370 76% 100 ML VIAL ONE; +Iopamidol-370 76% 500 ML 1 ML ONE
[2020-09-27 14:12] LABS: Mean Corpuscular HGB CONC 34.8 g/dL (32.0-36.0); Mean Corpuscular Hemoglobin 35.7 pg (27.0-31.0); Mean Platelet Volume 8.6 fL (7.4-10.4); Platelet Count 135 thou/uL (130-400); RBC Distribution Width 11.9 % (11.5-14.5); Red Blood Cell (RBC) Count 3.93 mill/uL (4.20-5.40)
[2020-09-27 14:28] LABS: Band 5 % (5-11); Lymphocytes 28 % (21-51); MDiff Complete? YES; Macrocytosis SLIGHT = 6-15 cells (100X) (0-5/hpf); Neutrophil 67 % (42-75); Platelet Morphology Comment Appears Adequate; Polychromasia SLIGHT = 2-3 cells (100X) (0-2/hpf); White Blood Cell (WBC) Count 11.4 thou/uL (4.8-10.8)
[2020-09-27 14:37] LABS: ALT (SGPT) 21 U/L (8-55); AST (SGOT) 20 U/L (5-34); Albumin 4.3 g/dL (3.4-4.8); Alkaline Phosphatase 76 U/L (40-110); Anion Gap 18 mmol/L (10-20); BUN (Urea Nitrogen) 20 mg/dL (9.8-20.1); Bilirubin, Total 0.7 mg/dL (0.2-1.2); Calc. Creatinine Clearance 0 mL/min (70-130); Calcium 9.1 mg/dL (7.8-10.44); Carbon Dioxide 21 mmol/L (23-31); Chloride 105 mmol/L (98-107); Globulin 2.9 g/dL (2.4-3.5); Glucose 191 mg/dL (83-110); Potassium 4.7 mmol/L (3.5-5.1); Protein, Total 7.2 g/dL (5.8-8.1); Sodium 139 mmol/L (136-145)
[2020-09-27] MEDS ORDERED: methylPREDNISolone Sod Succ/PF 125 MG/2 ML VIAL ONE (15:45)
[2020-09-27] MEDS ORDERED: Famotidine/PF 20 mg/2ml Vial ONE (15:45)
[2020-09-27] MEDS ORDERED: diphenhydrAMINE 50 MG/ML VIAL ONE (15:45)
[2020-09-27] MEDS ORDERED: Albuterol Sulfate 2.5 mg/0.5 ml Neb ONE (15:56)
[2020-09-28 12:36] LABS: SARS-CoV-2 PCR by NAA Not Detected (NotDetected)
== END 2020-09-27 17:19 | disposition home or self-care (01) ==
LOC: ERS 13:05
DX: J20.9 Acute bronchitis, unspecified (principal); I10 Essential (primary) hypertension; E03.9 Hypothyroidism, unspecified; E78.5 Hyperlipidemia, unspecified; Z87.891 Personal history of nicotine dependence; Z20.822 Contact with and (suspected) exposure to COVID-19
CPT/HCPCS: 71046; 71275; 80053; 84484; 85025; 93005; 94640; U0003; U0005; 36415; 96374; 96375; J1200; J2930; J7611; J7620; Q9967; S0028

== ENCOUNTER 2021-06-14 10:44 | Emergency (ER) | payer MEDICARE, OTHER, MEDICAID ==
[2021-06-14 11:24] LABS: #Lymphocytes 2.5 thou/uL (1.20-3.40); #Monocytes 0.9 thou/uL (0.11-0.59); #Neutrophils 6.4 thou/uL (1.40-6.50); %Basophils 0.1 % (0.0-1.0); %Eosinophils 0.4 % (0.0-10.0); %Lymphocytes 25.3 % (21.0-51.0); %Monocytes 8.8 % (0.0-10.0); %Neutrophils 65.3 % (42.0-75.0); Hemoglobin 13.1 g/dL (12.0-16.0); Mean Corpuscular HGB CONC 32.9 g/dL (32.0-36.0); Mean Corpuscular Hemoglobin 34.1 pg (27.0-31.0); Mean Platelet Volume 8.3 fL (7.4-10.4); Platelet Count 131 thou/uL (130-400); RBC Distribution Width 12.4 % (11.5-14.5); Red Blood Cell (RBC) Count 3.85 mill/uL (4.20-5.40); White Blood Cell (WBC) Count 9.7 thou/uL (4.8-10.8)
[2021-06-14] MEDS ORDERED: methylPREDNISolone Sod Succ/PF 125 MG/2 ML VIAL ONE (11:28)
[2021-06-14 11:41] LABS: ALT (SGPT) 10 U/L (8-55); AST (SGOT) 12 U/L (5-34); Albumin 3.9 g/dL (3.4-4.8); Alkaline Phosphatase 75 U/L (40-110); Anion Gap 18 mmol/L (10-20); BUN (Urea Nitrogen) 18 mg/dL (9.8-20.1); Bilirubin, Total 0.9 mg/dL (0.2-1.2); Calc. Creatinine Clearance 0 mL/min (70-130); Calcium 8.5 mg/dL (7.8-10.44); Carbon Dioxide 19 mmol/L (23-31); Chloride 106 mmol/L (98-107); Globulin 2.8 g/dL (2.4-3.5); Glucose 120 mg/dL (83-110); Magnesium 1.4 mg/dL (1.6-2.6); Potassium 4.6 mmol/L (3.5-5.1); Protein, Total 6.7 g/dL (5.8-8.1); Sodium 138 mmol/L (136-145)
[2021-06-14] MEDS ORDERED: Magnesium 2 GM/50 ML BAG (IN WATER) ONE (12:50)
[2021-06-14 14:03] LABS: Troponin I Less than 0.010 ng/mL (< 0.028)
[2021-06-14 20:52] LABS: SARS-CoV-2 PCR by NAA Not Detected (NotDetected)
== END 2021-06-14 15:12 | disposition home or self-care (01) ==
LOC: ERS 10:44
DX: J44.1 Chronic obstructive pulmonary disease with (acute) exacerbation (principal); E83.42 Hypomagnesemia; E03.9 Hypothyroidism, unspecified; E78.5 Hyperlipidemia, unspecified; I10 Essential (primary) hypertension; Z87.891 Personal history of nicotine dependence; Z20.822 Contact with and (suspected) exposure to COVID-19; Z79.82 Long term (current) use of aspirin; Z79.899 Other long term (current) drug therapy
CPT/HCPCS: 71045; 80053; 83735; 83880; 84484 ×2; 85025; 93005; 94760; U0003; U0005; 36415; 96365; 96375; J2930; J3475; J7620

== ENCOUNTER 2021-06-20 14:34 | Outpatient (CLI) | payer MEDICARE, OTHER, MEDICAID | END 2021-06-20 14:35 | disposition home or self-care (01) | LOC: RAD-FRANK 14:34 | PROVIDERS: ATTEND Nurse Practitioner Family | DX: J43.0 Unilateral pulmonary emphysema [MacLeod's syndrome] (principal); I65.21 Occlusion and stenosis of right carotid artery | CPT/HCPCS: 71046 ==

== ENCOUNTER 2021-09-13 08:46 | Outpatient (CLI) | payer MEDICARE, OTHER, MEDICAID | END 2021-09-13 08:47 | disposition home or self-care (01) | LOC: BICCT 08:46 | PROVIDERS: ATTEND Nurse Practitioner Family | DX: Z12.2 Encounter for screening for malignant neoplasm of respiratory organs (principal); Z87.891 Personal history of nicotine dependence; I65.21 Occlusion and stenosis of right carotid artery; I25.10 Atherosclerotic heart disease of native coronary artery without angina pectoris; G56.02 Carpal tunnel syndrome, left upper limb; J43.0 Unilateral pulmonary emphysema [MacLeod's syndrome]; I67.1 Cerebral aneurysm, nonruptured; E03.9 Hypothyroidism, unspecified; G89.29 Other chronic pain; F41.9 Anxiety disorder, unspecified; E53.8 Deficiency of other specified B group vitamins; F33.1 Major depressive disorder, recurrent, moderate; E78.5 Hyperlipidemia, unspecified; I10 Essential (primary) hypertension; Z79.899 Other long term (current) drug therapy | CPT/HCPCS: 36415; 71271; 80053; 80061; 82306; 84443; 85025 ==

== ENCOUNTER 2021-10-16 08:36 | Outpatient (CLI) | payer MEDICARE, OTHER, MEDICAID ==
[~2021-10-16 08:36] MED LIST changes: +Iopamidol 370 76% 100 ML VIAL ONE; -Iopamidol-370 76% 500 ML 1 ML ONE
== END 2021-10-16 08:37 | disposition home or self-care (01) ==
LOC: CT 08:36
PROVIDERS: ATTEND Neurological Surgery
DX: I67.1 Cerebral aneurysm, nonruptured (principal)
CPT/HCPCS: 70496; 82565; Q9967

== ENCOUNTER 2022-11-26 09:48 | Emergency (ER) | payer MEDICARE, OTHER, MEDICAID | END 2022-11-26 11:00 | disposition home or self-care (01) | LOC: ERS 09:48 | DX: S39.012A Strain of muscle, fascia and tendon of lower back, initial encounter (principal); M51.26 Other intervertebral disc displacement, lumbar region; J44.9 Chronic obstructive pulmonary disease, unspecified; I10 Essential (primary) hypertension; E03.9 Hypothyroidism, unspecified; E78.5 Hyperlipidemia, unspecified; Z79.899 Other long term (current) drug therapy; Z87.891 Personal history of nicotine dependence; Z79.82 Long term (current) use of aspirin; Z79.51 Long term (current) use of inhaled steroids; X58.XXXA Exposure to other specified factors, initial encounter | CPT/HCPCS: 99283 ==

== ENCOUNTER 2024-05-26 11:34 | Outpatient (CLI) | payer OTHER | END 2024-05-26 11:35 | disposition home or self-care (01) | LOC: BICRAD 11:34 | PROVIDERS: ATTEND Nurse Practitioner Family | DX: M25.512 Pain in left shoulder (principal); M19.012 Primary osteoarthritis, left shoulder; I70.0 Atherosclerosis of aorta ==